=== PATIENT | male | born 1990 | race Caucasian/White ===

== ENCOUNTER 2017-10-10 20:54 | Emergency (ER) | payer SELFPAY ==
[~2017-10-10] VITALS: Ht 177.8 cm; Wt 110.2 kg
[2017-10-10 20:57] VITALS: BP 112/78
[2017-10-10] MEDS ORDERED: BACITRACIN ZINC OINT 500U/GM, 0.9 GM ONE ×2 (21:44→23:48)
[2017-10-10] MEDS ORDERED: DIPH,PERTUSS(ACELL),TET VAC/PF 0.5 ML IM-VACC ONE ×2 (21:48→22:00)
[2017-10-10] MEDS ORDERED: OXYcodone/APAP 5/325MG TABLET ONE (23:38)
[2017-10-11] MEDS ORDERED: OXYcodone/APAP 5/325MG TABLET PO ONE ×2 (01:00)
[2017-10-11] MEDS ORDERED: OXYcodone/APAP 5/325MG TABLET ONE (01:09)
== END 2017-10-11 01:22 | disposition home or self-care (01) ==
LOC: ED 23:59
DX: S92.354A Nondisplaced fracture of fifth metatarsal bone, right foot, initial encounter for closed fracture (principal); S50.812A Abrasion of left forearm, initial encounter; V27.4XXA Motorcycle driver injured in collision with fixed or stationary object in traffic accident, initial encounter; Y93.89 Activity, other specified; Y99.8 Other external cause status; Y92.488 Other paved roadways as the place of occurrence of the external cause
CPT/HCPCS: 29515; 90471; 90715; 99284